=== PATIENT | male | born 1935 | race Caucasian/White ===

== ENCOUNTER → 2018-07-08 | Emergency (ER) | payer OTHER ==
[~2018-07-08] VITALS: Ht 167.6 cm; Wt 71.7 kg
[~2018-07-08] MED LIST: ASA81 MG PO; CLONAZEPAM0.5 M1 PO; GABAPENTIN600 MG PO; GLIPIZIDE XL10 MG PO; MECLIZINE HCL25 M1 PO; PENTOXIFYLLINE400 MG PO; PRINIVIL20 MG PO; PROZAC40 MG PO; SIMVASTATIN5 MG PO; TAMS0.4C PO
== END | disposition designated cancer center or children's hospital (05) ==
LOC: ER 18:10
DX: I60.8 Other nontraumatic subarachnoid hemorrhage (principal); S19.89XA Other specified injuries of other specified part of neck, initial encounter; E11.65 Type 2 diabetes mellitus with hyperglycemia; W01.0XXA Fall on same level from slipping, tripping and stumbling without subsequent striking against object, initial encounter; Y93.E8 Activity, other personal hygiene; Y92.012 Bathroom of single-family (private) house as the place of occurrence of the external cause; Y99.8 Other external cause status

== ENCOUNTER 2021-03-14 14:56 | Emergency (ER) | payer OTHER ==
[~2021-03-14] VITALS: Ht 170.2 cm; Wt 72.6 kg
== END 2021-03-14 22:15 | disposition home or self-care (01) ==
LOC: ER 14:56
DX: E86.0 Dehydration (principal); E87.8 Other disorders of electrolyte and fluid balance, not elsewhere classified; R53.1 Weakness; G30.8 Other Alzheimer's disease; F02.80 Dementia in other diseases classified elsewhere, unspecified severity, without behavioral disturbance, psychotic disturbance, mood disturbance, and anxiety; Z03.818 Encounter for observation for suspected exposure to other biological agents ruled out